=== PATIENT | female | born 1995 | race Caucasian/White ===

== ENCOUNTER → 2020-11-09 19:26 | Observation (INO) ==
[2020-11-09 17:55] LABS: Bilirubin,Urine Negative (Negative); Blood,Urine Negative (Negative); Clarity,Urine Clear (Clear); Color,Urine Colorless (Yellow); Glucose,Urine (UA) Normal (Normal); Ketones,Urine Negative (Negative); Leukocyte Esterase,Urine Negative (Negative); Nitrite,Urine Negative (Negative); PH,Urine 6.5 pH Units (5.0-8.0); Protein,Urine Negative (Neg-Trace); Specific Gravity,Urine 1.009 (1.010-1.025); Urobilinogen,Urine Normal (Normal)
[2020-11-09 18:01] LABS: Hematocrit 33.4 % (35.3-44.9); Mean Corpuscular HGB Conc 32.9 g/dL (31.6-35.5); Mean Corpuscular Hemoglobin 26.3 pg (28.0-33.3); Mean Corpuscular Volume 79.7 fL (83.0-100.0); Mean Platelet Volume 9.8 fL (9.4-12.4); Platelet Count 334 K/mcL (140-400); Red Blood Count 4.19 M/mcL (3.82-4.97); Red Cell Distribution Width 13.9 % (11.5-14.5); White Blood Count 13.1 K/mcL (4.3-11.1)
[2020-11-09 18:10] LABS: Immature Granulocytes % 0.2 % (0-4); Lymphocytes # 0.3 K/mcL (0.6-4.6); Lymphocytes % 1.9 %; Neutrophils # 1.3 K/mcL (1.6-8.9); Segmented Neutrophils % 9.6 %
[2020-11-09 18:11] LABS: Eosinophils % 0.1 %; Monocytes # 0.1 K/mcL (0.0-1.3); Monocytes % 0.9 %
[2020-11-09 18:16] LABS: Alanine Aminotransferase 12 Units/L (7-52); Aspartate Amino Transferase 12 Units/L (13-39); BUN/Creatinine Ratio 13 (6-26); Blood Urea Nitrogen 5 mg/dL (6-20); Lactate Dehydrogenase 100 Units/L (140-271); Uric Acid 3.6 mg/dL (2.3-7.6); eGFR For African Americans > 60 (> 60); eGFR For Non-African Americans > 60 (> 60)
[2020-11-09 18:47] LABS: Protein/Creatinine Ratio,Urine 0.13 mg/mg (0.00-0.20)
[2020-11-09 20:47] LABS: Candida DNA Not Detected (Not Detect); Gardnerella DNA DETECTED (Not Detect); Trichomonas DNA Not Detected (Not Detect)
== END | disposition home or self-care (01) ==
LOC: 1NENULAB
PROVIDERS: ADMIT Advanced Practice Midwife; ATTEND Advanced Practice Midwife

== ENCOUNTER → 2020-11-25 04:59 | Observation (INO) ==
[2020-11-25 03:38] VITALS: BP 133/63
[2020-11-25 04:06] LABS: Bilirubin,Urine Negative (Negative); Blood,Urine Negative (Negative); Clarity,Urine Turbid (Clear); Color,Urine Yellow (Yellow); Glucose,Urine (UA) Normal (Normal); Ketones,Urine Negative (Negative); Leukocyte Esterase,Urine Moderate (Negative); Mucus,Urine Few per lpf (None-Few); Nitrite,Urine Negative (Negative); PH,Urine 6.5 pH Units (5.0-8.0); Protein,Urine Trace mg/dL (Neg-Trace); RBC,Urine 0-3 per hpf (0-3); Specific Gravity,Urine 1.024 (1.010-1.025); Squamous Epithelial Cell,Urine Few per hpf (None-Few)
== END | disposition home or self-care (01) ==
LOC: 1NENULAB
PROVIDERS: ADMIT Advanced Practice Midwife; ATTEND Advanced Practice Midwife

== ENCOUNTER 2020-12-14 12:33 | Observation (INO) ==
[2020-12-14 13:39] LABS: Basophils % 0.2 %; Eosinophils # 0.1 K/mcL (0.0-0.6); Eosinophils % 1.1 %; Hematocrit 32.9 % (35.3-44.9); Hemoglobin 10.2 g/dL (11.5-15.4); Immature Granulocytes % 0.6 % (0-4); Lymphocytes # 1.3 K/mcL (0.6-4.6); Lymphocytes % 10.1 %; Mean Corpuscular Hemoglobin 24.9 pg (28.0-33.3); Mean Corpuscular Volume 80.2 fL (83.0-100.0); Mean Platelet Volume 9.9 fL (9.4-12.4); Monocytes # 0.7 K/mcL (0.0-1.3); Monocytes % 5.5 %; Neutrophils # 10.7 K/mcL (1.6-8.9); Platelet Count 354 K/mcL (140-400); Red Cell Distribution Width 14.1 % (11.5-14.5); Segmented Neutrophils % 82.5 %; White Blood Count 12.9 K/mcL (4.3-11.1)
[2020-12-14 13:44] LABS: Protein/Creatinine Ratio,Urine 0.18 mg/mg (0.00-0.20)
[2020-12-14 13:50] LABS: Amorphous Sediment,Urine Few per hpf (None-Few); Bacteria,Urine Few per hpf (None-Few); Bilirubin,Urine Negative (Negative); Blood,Urine Negative (Negative); Clarity,Urine Turbid (Clear); Color,Urine Light-Yellow (Yellow); Glucose,Urine (UA) Normal (Normal); Ketones,Urine 10 mg/dL (Negative); Leukocyte Esterase,Urine Small (Negative); Mucus,Urine Few per lpf (None-Few); Nitrite,Urine Negative (Negative); PH,Urine 7.5 pH Units (5.0-8.0); Protein,Urine Trace mg/dL (Neg-Trace); RBC,Urine 0-3 per hpf (0-3); Squamous Epithelial Cell,Urine Few per hpf (None-Few); Urobilinogen,Urine Normal (Normal); WBC,Urine 0-3 per hpf (0-3)
[2020-12-14] MEDS ORDERED: Ringers Solution, Lactated 1,000 ML IVC ONE (13:56)
[2020-12-14 13:57] LABS: Alanine Aminotransferase 9 Units/L (7-52); Aspartate Amino Transferase 10 Units/L (13-39); BUN/Creatinine Ratio 11 (6-26); Blood Urea Nitrogen 5 mg/dL (6-20); Lactate Dehydrogenase 84 Units/L (140-271); Uric Acid 4.6 mg/dL (2.3-7.6); eGFR For African Americans > 60 (> 60); eGFR For Non-African Americans > 60 (> 60)
[2020-12-14] MEDS ORDERED: Ringers Solution, Lactated 1,000 ML ONE (13:58)
== END 2020-12-14 15:37 | disposition home or self-care (01) ==
LOC: 1NENULAB
PROVIDERS: ADMIT Advanced Practice Midwife; ATTEND Advanced Practice Midwife

== ENCOUNTER 2020-12-18 23:43 | Inpatient (IN) ==
[2020-12-18] MEDS ORDERED: Naloxone 0.4 MG/ML INJ IVP PRN (23:56)
[2020-12-18] MEDS ORDERED: Lidocaine 1% 20 ML MDV ID PRN (23:56)
[2020-12-18] MEDS ORDERED: Famotidine 20 MG/2 ML VIAL IVP PRN (23:56)
[2020-12-18] MEDS ORDERED: Azithromycin 500 MG in 0.9 % Sodium Chloride 250 ML IVPB PRN (23:56)
[2020-12-18] MEDS ORDERED: Metoclopramide 10 MG/2 ML VIAL IVP PRN (23:56)
[2020-12-18] MEDS ORDERED: *HR* Nalbuphine 10 MG/ML AMPUL IV PRN (23:56)
[2020-12-19] MEDS ORDERED: miSOPROStoL 25 MCG TABLET PO PRN (00:01)
[2020-12-19 00:35] LABS: Basophils # 0.1 K/mcL (0.0-0.2); Basophils % 0.4 %; Eosinophils # 0.1 K/mcL (0.0-0.6); Hematocrit 34.2 % (35.3-44.9); Hemoglobin 10.8 g/dL (11.5-15.4); Immature Granulocytes % 1.6 % (0-4); Lymphocytes # 1.8 K/mcL (0.6-4.6); Lymphocytes % 14.7 %; Mean Corpuscular HGB Conc 31.6 g/dL (31.6-35.5); Mean Corpuscular Hemoglobin 25.2 pg (28.0-33.3); Mean Corpuscular Volume 79.7 fL (83.0-100.0); Monocytes % 8.1 %; Neutrophils # 9.2 K/mcL (1.6-8.9); Platelet Count 369 K/mcL (140-400); Red Blood Count 4.29 M/mcL (3.82-4.97); Red Cell Distribution Width 14.3 % (11.5-14.5); Segmented Neutrophils % 74.2 %; White Blood Count 12.4 K/mcL (4.3-11.1)
[2020-12-19 00:43] LABS: Amphetamine Screen,Urine Negative ng/mL (Cutoff=1000); Barbiturate Screen,Urine Negative ng/mL (Cutoff=200); Benzodiazepines Screen,Urine Negative ng/mL (Cutoff=200); Cannabinoid Screen,Urine Negative ng/mL (Cutoff = 50); Cocaine Screen,Urine Negative ng/mL (Cutoff= 300); Creatinine,Urine 82 mg/dL; Opiate Screen,Urine Negative ng/mL (Cutoff=300); Phencyclidine Screen,Urine Negative ng/mL (Cutoff=25); Protein/Creatinine Ratio,Urine 0.17 mg/mg (0.00-0.20)
[2020-12-19 00:51] LABS: Alanine Aminotransferase 9 Units/L (7-52); Aspartate Amino Transferase 11 Units/L (13-39); BUN/Creatinine Ratio 10 (6-26); Blood Urea Nitrogen 6 mg/dL (6-20); Lactate Dehydrogenase 99 Units/L (140-271); Uric Acid 4.3 mg/dL (2.3-7.6); eGFR For African Americans > 60 (> 60); eGFR For Non-African Americans > 60 (> 60)
[2020-12-19 01:44] LABS: Glucose 91 mg/dL (70-105)
[2020-12-19] MEDS: Oxytocin 20 units/ LR 1000 mL 20 UNIT/1,000 ML BAG IVC SCH (09:20)
[2020-12-19] MEDS ORDERED: Ropivacaine/PF 0.2% 20 ML VIAL EP ONE (10:06)
[2020-12-19] MEDS ORDERED: Ropivacaine/PF 0.2% 20 ML VIAL ONE (10:21)
[2020-12-19] MEDS: Ringers Solution, Lactated 1,000 ML IVC SCH ×2 (11:04→13:58)
[2020-12-19] MEDS: Epidural Premix (fent/bupiv) 110 ML EP SCH ×2 (11:05→18:40)
[2020-12-19] MEDS: Ondansetron 4 MG/2 ML VIAL IVP PRN ×2 (11:35→23:32)
[2020-12-19] MEDS: EPHEDrine 50 MG/ML VIAL IVP PRN ×2 (11:41→13:46)
[2020-12-19] MEDS: Acetaminophen 325 MG TABLET PO PRN (19:30)
[2020-12-20] MEDS: Epidural Premix (fent/bupiv) 110 ML EP SCH ×3 (02:43→16:00)
[2020-12-20] MEDS: Oxytocin 20 units/ LR 1000 mL 20 UNIT/1,000 ML BAG IVC SCH (07:34)
[2020-12-20] MEDS: Ringers Solution, Lactated 1,000 ML IVC SCH (07:34)
[2020-12-20] MEDS ORDERED: Simethicone 80 MG TAB.CHEW PO PRN (09:22)
[2020-12-20] MEDS: Ondansetron 4 MG/2 ML VIAL IVP PRN (18:28)
[2020-12-20] MEDS: Acetaminophen 325 MG TABLET PO PRN (18:29)
[2020-12-20] MEDS ORDERED: Ampicillin 2,000 MG in 0.9 % Sodium Chloride Mini Bag 100 ML IVPB ONE (18:41)
[2020-12-20] MEDS ORDERED: Ampicillin 1,000 MG in 0.9 % Sodium Chloride Mini Bag 100 ML IVPB SCH (23:00)
[2020-12-21] MEDS ORDERED: Rho Immune Globulin 1,500 UNIT SYRINGE IM PRN (02:02)
[2020-12-21] MEDS ORDERED: Measles/Mumps/Rubella Vacc 0.5 ML VIAL SQ PRN (02:02)
[2020-12-21] MEDS ORDERED: Oxytocin 20 units/ LR 1000 mL 20 UNIT/1,000 ML BAG IVC SCH (02:02)
[2020-12-21] MEDS ORDERED: Oxytocin 20 units/ LR 1000 mL 20 UNIT/1,000 ML BAG IVC ONE (02:02)
[2020-12-21] MEDS: Ibuprofen 600 MG TABLET PO PRN ×3 (03:42→18:14)
[2020-12-21] MEDS: Prenatal Vit/FA 1 EACH TABLET PO SCH (08:03)
[2020-12-21] MEDS ORDERED: Benzocaine/Menthol 56 GM AEROSOL SPRAY TP PRN (08:13)
[2020-12-21 09:44] LABS: Basophils # 0.1 K/mcL (0.0-0.2); Basophils % 0.4 %; Eosinophils # 0.1 K/mcL (0.0-0.6); Eosinophils % 0.8 %; Hematocrit 28.7 % (35.3-44.9); Immature Granulocytes % 1.2 % (0-4); Lymphocytes # 1.5 K/mcL (0.6-4.6); Lymphocytes % 9.4 %; Mean Corpuscular HGB Conc 31.4 g/dL (31.6-35.5); Mean Corpuscular Hemoglobin 25.4 pg (28.0-33.3); Mean Corpuscular Volume 80.8 fL (83.0-100.0); Mean Platelet Volume 10.2 fL (9.4-12.4); Monocytes # 1.2 K/mcL (0.0-1.3); Monocytes % 7.6 %; Neutrophils # 13.1 K/mcL (1.6-8.9); Platelet Count 329 K/mcL (140-400); Red Blood Count 3.55 M/mcL (3.82-4.97); Segmented Neutrophils % 80.6 %; White Blood Count 16.3 K/mcL (4.3-11.1)
[2020-12-21] MEDS: Acetaminophen 325 MG TABLET PO PRN (20:17)
[2020-12-21 20:32] VITALS: TEMP 97.9
[2020-12-22] MEDS: Ibuprofen 600 MG TABLET PO PRN ×2 (02:16→08:23)
[2020-12-22] MEDS: Acetaminophen 325 MG TABLET PO PRN ×2 (02:17→08:22)
[2020-12-22 08:00] VITALS: BP 137/69; PULSE 88; O2SAT 98
[2020-12-22] MEDS: Prenatal Vit/FA 1 EACH TABLET PO SCH (08:23)
== END 2020-12-22 10:24 | disposition home or self-care (01) | DRG 560 ==
LOC: 1NENULAB 23:43 → 1NENUOBS 12-21 01:33
PROVIDERS: ADMIT Obstetrics & Gynecology; ATTEND Obstetrics & Gynecology